=== PATIENT | female | born 1995 | race Caucasian/White ===

== ENCOUNTER 2022-10-22 19:20 | Inpatient (IN) | payer OTHER ==
[2022-10-22] MEDS ORDERED: LACTATED RINGERS SOLUTION 1,000 ML IV SCH (20:30)
[2022-10-22 21:49] VITALS: BMI 31.9
[2022-10-22 21:49] LABS: BASO % 0.9 % (0-2.0); EOS % 0.1 % (0-4.5); HEMATOCRIT 34.1 % (32.4-45.2); HEMOGLOBIN 11.3 GM/dL (10.7-15.3); MCH 28.8 pg (25.7-33.7); MCHC 33.1 g/dl (32.0-36.0); MEAN CELL VOLUME 87.1 fl (80-96); MEAN PLT VOLUME 10.8 fl (7.5-11.1); MONO % 4.1 % (3.8-10.2); NEUT % 83.9 % (42.8-82.8); PLATELET COUNT 272 10^3/uL (134-434); RBC 3.92 M/mm3 (3.60-5.2); RDW 15.1 % (11.6-15.6); WHITE BLOOD COUNT 11.8 K/mm3 (4.0-10.0)
[2022-10-22 21:58] LABS: INR 0.89 (0.83-1.09); PROTHROMBIN TIME (PATIENT) 10.3 SEC (9.7-13.0)
[2022-10-22 22:09] LABS: CALCIUM 9.2 mg/dL (8.5-10.1)
[2022-10-22 22:10] LABS: ALBUMIN 2.5 g/dl (3.4-5.0); BLOOD UREA NITROGEN 10.8 mg/dL (7-18)
[2022-10-22 22:13] LABS: CREATININE 0.7 mg/dL (0.55-1.3)
[2022-10-22 22:15] LABS: BILIRUBIN,TOTAL 0.5 mg/dL (0.2-1)
[2022-10-22 22:16] LABS: TOT PROT 7.2 g/dl (6.4-8.2)
[2022-10-22 22:36] LABS: ACTIVATED PTT 25.3 SECONDS (25.2-36.5)
[2022-10-22] MEDS ORDERED: FENTANYL/BUPIVACAINE/NS/PF - PCEA - 50 ML DISP.SYRIN EP ONE (23:36)
[2022-10-22] MEDS ORDERED: FENTANYL CITRATE/PF 50 MCG/ML VIAL ONE (23:43)
[2022-10-23] MEDS ORDERED: NALOXONE HCL 0.4 MG/ML VIAL IVPUSH PRN (00:19)
[2022-10-23 00:51] LABS: METHADONE, UR NEGATIVE (NEGATIVE); URINE AMPHETAMINES NEGATIVE (NEGATIVE); URINE BENZODIAZEPINES NEGATIVE (NEGATIVE)
[2022-10-23 00:52] LABS: OPIATES, URI NEGATIVE (NEGATIVE); URINE BARBITURATES NEGATIVE (NEGATIVE)
[2022-10-23 01:02] LABS: COCAINE, UR NEGATIVE (NEGATIVE); PHENCYCLIDINE,URINE NEGATIVE (NEGATIVE)
[2022-10-23] MEDS: LACTATED RINGERS SOLUTION 1,000 ML IV SCH (04:00)
[2022-10-23] MEDS ORDERED: FENTANYL/BUPIVACAINE/NS/PF - PCEA - 50 ML DISP.SYRIN EP ONE ×2 (05:03→08:41)
[2022-10-23] MEDS: FENTANYL/BUPIVACAINE/NS/PF - PCEA - 50 ML DISP.SYRIN EP SCH ×4 (05:05→08:40)
[2022-10-23] MEDS ORDERED: OXYTOCIN 30 UNITS in 0.9% NS 30 UNIT/500 ML INFUS.BAG IVPB ONE (05:54)
[2022-10-23] MEDS ORDERED: OXYTOCIN 30 UNITS in 0.9% NS 30 UNIT/500 ML INFUS.BAG IVPB SCH (06:30)
[2022-10-23 09:44] LABS: POC NITRAZINE POS
[2022-10-23] MEDS ORDERED: LIDOCAINE HCL 1% PRESERVATIVE FREE - 30ML VIAL ONE (09:47)
[2022-10-23] MEDS ORDERED: OXYTOCIN 20 UNITS in 0.9% NS 20 UNIT/1,000 ML INFUS.BAG IV ONE (09:47)
[2022-10-23] MEDS ORDERED: LIDO 2%/EPI 1:200000 PRESRVFRE (20 ML SDVIAL) ONE (12:23)
[2022-10-23] MEDS ORDERED: SODIUM CHLORIDE 0.9% P/F 10 ML VIAL IJ ONE (12:38)
[2022-10-23] MEDS ORDERED: ceFAZolin SODIUM 1 GM VIAL ONE (12:38)
[2022-10-23] MEDS ORDERED: morphine SULFATE/PF 1 MG/2 ML (2cc Syringe - QUVA) ONE ×2 (12:41→12:53)
[2022-10-23] MEDS ORDERED: FENTANYL CITRATE/PF 50 MCG/ML VIAL ONE (12:44)
[2022-10-23] MEDS ORDERED: OXYTOCIN 10 UNITS/ML VIAL ONE ×2 (12:45→13:53)
[2022-10-23] MEDS ORDERED: GENTAMICIN SO4 80 MG/2 ML VIAL ONE (12:49)
[2022-10-23] MEDS ORDERED: METOPROLOL TARTRATE 5 MG/5 ML VIAL ONE (13:05)
[2022-10-23] MEDS ORDERED: ONDANSETRON 4 MG/2 ML VIAL ONE (13:12)
[2022-10-23] MEDS ORDERED: ACETAMINOPHEN 325 MG TABLET (FP) PO PRN (13:19)
[2022-10-23] MEDS ORDERED: METHYLERGONOVINE MALEATE 0.2 MG/1 ML AMP IM PRN (13:19)
[2022-10-23 13:25] LABS: CORD HCO3 25.8 mmHg (20-29); CORD PCO2 65.6 mmHg (30-78); CORD pH 7.213 (7.14-7.44)
[2022-10-23] MEDS ORDERED: IBUPROFEN 800 MG/8 ML IJ IVPB PRN (13:26)
[2022-10-23 13:28] LABS: CORD BASE EXCESS -1.8 mmol/L (0-2); CORD HCO3 24.4 mmHg (20-29); CORD PCO2 45.9 mmHg (30-78); CORD pH 7.343 (7.14-7.44)
[2022-10-23] MEDS ORDERED: OXYTOCIN IVPB ONE (13:30)
[2022-10-23] MEDS ORDERED: SODIUM CHLORIDE IVPB ONE (13:30)
[2022-10-23] MEDS ORDERED: ACETAMINOPHEN 1000 MG/100 ML BAG IVPB ONE (15:30)
[2022-10-23] MEDS ORDERED: ACETAMINOPHEN INJECTION 100 ML IVPB ONE (15:31)
[2022-10-23] MEDS: AMPICILLIN - 2 GM in SODIUM CHLORIDE 100 ML IVPB SCH (17:49)
[2022-10-23] MEDS: GENTAMICIN 80 MG PREMIXED IVPB 80 MG/100 ML BAG IVPB SCH (18:41)
[2022-10-23] MEDS: OXYTOCIN 20 UNITS in 0.9% NS 20 UNIT/1,000 ML INFUS.BAG IV SCH (22:46)
[2022-10-24] MEDS: AMPICILLIN - 2 GM in SODIUM CHLORIDE 100 ML IVPB SCH ×2 (01:12→09:07)
[2022-10-24] MEDS: GENTAMICIN 80 MG PREMIXED IVPB 80 MG/100 ML BAG IVPB SCH ×2 (01:13→09:51)
[2022-10-24] MEDS ORDERED: oxyCODONE HCL 5 MG TABLET PO PRN ×2 (01:20)
[2022-10-24] MEDS ORDERED: AMPICILLIN SODIUM 2 GM VIAL ONE (09:04)
[2022-10-24 09:35] LABS: BASO % 0.2 % (0-2.0); EOS % 0.3 % (0-4.5); HEMATOCRIT 25.9 % (32.4-45.2); HEMOGLOBIN 8.8 GM/dL (10.7-15.3); LYMPH % 13.3 % (8-40); MCHC 34.1 g/dl (32.0-36.0); MEAN CELL VOLUME 88.2 fl (80-96); MEAN PLT VOLUME 9.6 fl (7.5-11.1); MONO % 3.5 % (3.8-10.2); NEUT % 82.7 % (42.8-82.8); PLATELET COUNT 200 10^3/uL (134-434); RBC 2.94 M/mm3 (3.60-5.2); RDW 15.4 % (11.6-15.6); WHITE BLOOD COUNT 11.1 K/mm3 (4.0-10.0)
[2022-10-24] MEDS: FERROUS SO4 325 MG TABLET (FP) PO SCH (12:20)
[2022-10-24] MEDS ORDERED: BISACODYL 10 MG SUPP.RECT RC PRN (13:20)
[2022-10-24] MEDS: SIMETHICONE 80 MG TAB.CHEW (FP) PO PRN (23:00)
[2022-10-24] MEDS: IBUPROFEN 600 MG TABLET (FP) PO PRN (23:00)
[2022-10-25] MEDS: FENTANYL/BUPIVACAINE/NS/PF - PCEA - 50 ML DISP.SYRIN EP SCH (01:52)
[2022-10-25] MEDS: OXYTOCIN 20 UNITS in 0.9% NS 20 UNIT/1,000 ML INFUS.BAG IV SCH (01:52)
[2022-10-25] MEDS: LACTATED RINGERS SOLUTION 1,000 ML IV SCH (01:52)
[2022-10-25] MEDS: IBUPROFEN 600 MG TABLET (FP) PO PRN ×2 (09:15→20:26)
[2022-10-25] MEDS: FERROUS SO4 325 MG TABLET (FP) PO SCH (09:19)
[2022-10-25] MEDS: AMOX TR/POT CLAV 875MG/125MG TABLETS (FP) PO SCH ×2 (11:22→17:46)
[2022-10-25] MEDS: SIMETHICONE 80 MG TAB.CHEW (FP) PO PRN (20:26)
[2022-10-26 07:10] LABS: BASO % 0.3 % (0-2.0); EOS % 2.2 % (0-4.5); HEMATOCRIT 24.9 % (32.4-45.2); HEMOGLOBIN 8.3 GM/dL (10.7-15.3); MCH 29.8 pg (25.7-33.7); MCHC 33.5 g/dl (32.0-36.0); MEAN CELL VOLUME 88.9 fl (80-96); MEAN PLT VOLUME 9.1 fl (7.5-11.1); MONO % 4.9 % (3.8-10.2); NEUT % 80.6 % (42.8-82.8); PLATELET COUNT 280 10^3/uL (134-434); RDW 15.6 % (11.6-15.6); WHITE BLOOD COUNT 11.3 K/mm3 (4.0-10.0)
[2022-10-26] MEDS: AMOX TR/POT CLAV 875MG/125MG TABLETS (FP) PO SCH (09:15)
[2022-10-26] MEDS: IBUPROFEN 600 MG TABLET (FP) PO PRN (09:15)
[2022-10-26] MEDS: FERROUS SO4 325 MG TABLET (FP) PO SCH (09:15)
[2022-10-26 11:46] VITALS: RESP 16
[2022-10-26 14:47] VITALS: BP 127/88; PULSE 112; TEMP 98.1
== END 2022-10-26 15:00 | disposition home or self-care (01) | DRG 540 ==
LOC: JDEL 19:20 → EDBD 20:35 → JLDR 20:35 → J3W 10-23 16:00
PROVIDERS: ADMIT Obstetrics & Gynecology; ATTEND Obstetrics & Gynecology
PROC: 10D00Z1 Extraction of Products of Conception, Low, Open Approach (ICD-10-PCS; principal; 2022-10-23)
DX: O63.1 Prolonged second stage (of labor) (principal); O64.0XX0 Obstructed labor due to incomplete rotation of fetal head, not applicable or unspecified; O14.04 Mild to moderate pre-eclampsia, complicating childbirth; O90.81 Anemia of the puerperium; Z3A.40 40 weeks gestation of pregnancy; Z37.0 Single live birth
CPT/HCPCS: 36415; 36600; 76819-TC; 80053; 80307; 82570; 82803; 83986-QW; 84156; 85025; 85610; 85730; 86780; 86850; 86900; 86901; 88307-TC; C9803-CS; U0003; U0005

== ENCOUNTER 2022-10-30 00:21 | Emergency (ER) | payer OTHER ==
[2022-10-30 00:41] VITALS: BMI 29.2
[2022-10-30 04:05] VITALS: BP 119/78; PULSE 105; RESP 15; TEMP 98.4
== END 2022-10-30 04:42 | disposition home or self-care (01) ==
LOC: JER 00:21
DX: O90.0 Disruption of cesarean delivery wound (principal)
CPT/HCPCS: 99281-25

== ENCOUNTER 2023-08-18 18:56 | Observation (INO) | payer OTHER ==
[2023-08-18] MEDS ORDERED: ACETAMINOPHEN 1000 MG/100 ML BAG IVPB ONE (20:15)
[2023-08-18] MEDS ORDERED: ONDANSETRON 4 MG/2 ML VIAL IVPUSH ONE (20:15)
[2023-08-18] MEDS ORDERED: FAMOTIDINE 20 MG/50 ML IVPB 20 MG/50 ML MG IVPB ONE (20:15)
[2023-08-18] MEDS ORDERED: LACTATED RINGERS SOLUTION 1000 ML INFUS.BAG IV ONE (20:15)
[2023-08-18] MEDS ORDERED: ACETAMINOPHEN INJECTION 100 ML IVPB ONE (20:23)
[2023-08-18] MEDS ORDERED: FAMOTIDINE 10 MG/ML VIAL IVPB ONE (20:23)
[2023-08-18] MEDS ORDERED: ONDANSETRON 4 MG/2 ML VIAL ONE (20:23)
[2023-08-18 20:50] LABS: BASO % 0.4 % (0-2.0); HEMATOCRIT 37.4 % (32.4-45.2); HEMOGLOBIN 12.2 GM/dL (10.7-15.3); LYMPH % 6.4 % (8-40); MCH 26.7 pg (25.7-33.7); MCHC 32.5 g/dl (32.0-36.0); MEAN CELL VOLUME 82.3 fl (80-96); MEAN PLT VOLUME 8.4 fl (7.5-11.1); MONO % 2.9 % (3.8-10.2); NEUT % 90.3 % (42.8-82.8); PLATELET COUNT 308 10^3/uL (134-434); RBC 4.55 M/mm3 (3.60-5.2); WHITE BLOOD COUNT 16.6 K/mm3 (4.0-10.0)
[2023-08-18 21:05] LABS: INR 1.08 (0.83-1.09); PROTHROMBIN TIME (PATIENT) 12.5 SEC (9.7-13.0)
[2023-08-18 21:07] LABS: ACTIVATED PTT 27.9 SECONDS (25.2-36.5)
[2023-08-18 21:09] LABS: POTASSIUM 3.6 mmol/L (3.5-5.1)
[2023-08-18 21:09] LABS: EPI CELLS 24 /uL (0-25.1); HYALINE CASTS 1 /uL (0-3.1); URINE APPEARANCE CLOUDY; URINE BACTERIA 43 /uL (0-1359); URINE BILIRUBIN NEGATIVE (NEGATIVE); URINE COLOR YELLOW; URINE GLUCOSE (UA) NEGATIVE (NEGATIVE); URINE KETONE 1+ (NEGATIVE); URINE LEUK ESTERASE NEGATIVE (NEGATIVE); URINE NITRITE NEGATIVE (NEGATIVE); URINE PROTEIN NEGATIVE (NEGATIVE); URINE RBC 90 /uL (0-23.9); URINE UROBILINOGEN 0.2 mg/dL (0.2-1.0); URINE WBC 12 /uL (0-25.8)
[2023-08-18 21:11] LABS: CALCIUM 9.1 mg/dL (8.5-10.1)
[2023-08-18 21:12] LABS: ALBUMIN 4.1 g/dl (3.4-5.0); BLOOD UREA NITROGEN 12.4 mg/dL (7-18)
[2023-08-18 21:15] LABS: CREATININE 0.8 mg/dL (0.55-1.3)
[2023-08-18 21:16] LABS: BILIRUBIN,TOTAL 0.5 mg/dL (0.2-1)
[2023-08-18 21:17] LABS: TOT PROT 8.2 g/dl (6.4-8.2)
[2023-08-18 21:33] LABS: HCG,QUALITATIVE URINE Negative
[2023-08-18] MEDS ORDERED: PIPERACILLIN/TAZOB 3.375 GM 3.375 GM/50 ML BAG IVPB ONE (23:42)
[2023-08-18] MEDS ORDERED: SODIUM CHLORIDE 1,000 ML IV SCH (23:45)
[2023-08-18] MEDS: PIPERACILLIN/TAZOB 3.375 GM 3.375 GM in DEXTROSE 5%-WATER - 50 ML IVPB SCH (23:49)
[2023-08-19] MEDS ORDERED: morphine CARPU-JECT 2 MG/1 ML DISP.SYRIN IVPUSH PRN (00:06)
[2023-08-19] MEDS ORDERED: ONDANSETRON 4 MG/2 ML VIAL IVPUSH PRN ×4 (02:41→11:25)
[2023-08-19] MEDS: PIPERACILLIN/TAZOB 3.375 GM 3.375 GM in DEXTROSE 5%-WATER - 50 ML IVPB SCH ×4 (03:14→12:37)
[2023-08-19 08:13] VITALS: BMI 21.5
[2023-08-19] MEDS ORDERED: ACETAMINOPHEN 325 MG TABLET (FP) PO PRN (08:20)
[2023-08-19] MEDS ORDERED: LACTATED RINGERS SOLUTION 1,000 ML IV SCH ×2 (08:30→11:25)
[2023-08-19] MEDS ORDERED: MIDAZOLAM HCL 2 MG/2 ML SINGLE DOSE VIAL ONE (08:52)
[2023-08-19] MEDS ORDERED: PROPOFOL 20 ML ONE (08:52)
[2023-08-19] MEDS ORDERED: SUCCINYLCHOLINE CHLORIDE 200 MG/10 ML SYRINGE ONE (08:52)
[2023-08-19] MEDS ORDERED: ROCURONIUM BROMIDE 50 MG/5 ML SYRINGE ONE (08:57)
[2023-08-19] MEDS ORDERED: SUGAMMADEX SODIUM 200 MG/2 ML VIAL ONE (08:57)
[2023-08-19 09:09] LABS: HEMATOCRIT 33.8 % (32.4-45.2); MCH 26.9 pg (25.7-33.7); MCHC 32.6 g/dl (32.0-36.0); MEAN CELL VOLUME 82.4 fl (80-96); MEAN PLT VOLUME 8.8 fl (7.5-11.1); PLATELET COUNT 267 10^3/uL (134-434); RBC 4.11 M/mm3 (3.60-5.2); RDW 15.8 % (11.6-15.6); WHITE BLOOD COUNT 16.6 K/mm3 (4.0-10.0)
[2023-08-19] MEDS ORDERED: BUPIVACAINE HCL/PF 0.25% (2.5MG/ML) 10 ML VIAL ONE (09:18)
[2023-08-19 09:29] LABS: POTASSIUM 3.3 mmol/L (3.5-5.1)
[2023-08-19 09:37] LABS: BLOOD UREA NITROGEN 7.7 mg/dL (7-18)
[2023-08-19 09:40] LABS: CREATININE 0.7 mg/dL (0.55-1.3)
[2023-08-19 09:41] LABS: BILIRUBIN,TOTAL 0.9 mg/dL (0.2-1); TOT PROT 6.6 g/dl (6.4-8.2)
[2023-08-19 09:45] LABS: ALBUMIN 3.1 g/dl (3.4-5.0)
[2023-08-19] MEDS ORDERED: ONDANSETRON 4 MG/2 ML VIAL ONE (09:51)
[2023-08-19] MEDS ORDERED: KETOROLAC TROMETHAMINE 30 MG/1 ML VIAL ONE (09:51)
[2023-08-19] MEDS ORDERED: DEXAMETHASONE SOD PHOSPHATE 4 MG/1 ML VIAL ONE (09:51)
[2023-08-19] MEDS ORDERED: BUPIVACAINE HCL/PF 0.25% (2.5MG/ML) 10 ML VIAL IJ ONE (09:56)
[2023-08-19 12:30] VITALS: RESP 20
[2023-08-19] MEDS: ACETAMINOPHEN 325 MG TABLET (FP) PO PRN (17:33)
[2023-08-20 08:53] LABS: BASO % 0.4 % (0-2.0); HEMATOCRIT 28.1 % (32.4-45.2); HEMOGLOBIN 9.2 GM/dL (10.7-15.3); LYMPH % 29.6 % (8-40); MCH 27.7 pg (25.7-33.7); MCHC 32.8 g/dl (32.0-36.0); MEAN CELL VOLUME 84.6 fl (80-96); MONO % 5.5 % (3.8-10.2); NEUT % 63.5 % (42.8-82.8); PLATELET COUNT 218 10^3/uL (134-434); RBC 3.32 M/mm3 (3.60-5.2); RDW 16.2 % (11.6-15.6); WHITE BLOOD COUNT 9.6 K/mm3 (4.0-10.0)
[2023-08-20 09:03] LABS: POTASSIUM 3.3 mmol/L (3.5-5.1)
[2023-08-20 09:06] LABS: CALCIUM 7.8 mg/dL (8.5-10.1)
[2023-08-20 09:10] LABS: CREATININE 0.7 mg/dL (0.55-1.3)
[2023-08-20 09:12] LABS: BILIRUBIN,TOTAL 0.5 mg/dL (0.2-1); TOT PROT 5.3 g/dl (6.4-8.2)
[2023-08-20 09:15] LABS: ALBUMIN 2.4 g/dl (3.4-5.0)
[2023-08-20] MEDS ORDERED: POTASSIUM CHLORIDE TABS 20 MEQ TABLET.ER (FP) PO ONE (09:27)
[2023-08-20] MEDS: ACETAMINOPHEN 325 MG TABLET (FP) PO PRN (09:50)
[2023-08-20 09:53] VITALS: BP 114/68; PULSE 88; TEMP 99
== END 2023-08-20 13:24 | disposition home or self-care (01) ==
LOC: JER 18:56 → JERBED 22:56 → J8W 08-19 02:26
PROVIDERS: ADMIT Internal Medicine; ATTEND Nurse Practitioner Acute Care
PROC: 3E033NZ Introduction of Analgesics, Hypnotics, Sedatives into Peripheral Vein, Percutaneous Approach (ICD-10-PCS; 2023-08-18)
PROC: 3E033GC Introduction of Other Therapeutic Substance into Peripheral Vein, Percutaneous Approach (ICD-10-PCS; 2023-08-18)
PROC: 3E033GC Introduction of Other Therapeutic Substance into Peripheral Vein, Percutaneous Approach (ICD-10-PCS; 2023-08-18)
PROC: 3E03329 Introduction of Other Anti-infective into Peripheral Vein, Percutaneous Approach (ICD-10-PCS; 2023-08-18)
PROC: 3E0337Z Introduction of Electrolytic and Water Balance Substance into Peripheral Vein, Percutaneous Approach (ICD-10-PCS; 2023-08-18)
PROC: 0DTJ4ZZ Resection of Appendix, Percutaneous Endoscopic Approach (ICD-10-PCS; principal; 2023-08-19 09:00)
DX: K35.890 Other acute appendicitis without perforation or gangrene (principal)
CPT/HCPCS: 0241U-QW; 36415; 74177-TC; 80053; 81003; 82962; 83690; 84703; 85025; 85027; 85610; 85730; 86850; 86900; 86901; 87086; 88304-TC; 93005; 93010; 94010; 94760; 96361; 96365; 96367; 96375; 96376; 99285-25; G0378; Q9967